=== PATIENT | male | born 1990 | race Caucasian/White ===

== ENCOUNTER 2019-07-26 21:58 | Emergency (ER) | payer OTHER ==
[~2019-07-26] VITALS: Ht 180.3 cm; Wt 83.9 kg
[2019-07-26 22:14] VITALS: Ht 180.3 cm; Wt 83.9 kg
[2019-07-27 02:16] VITALS: BP 131/77
== END 2019-07-27 02:16 | disposition home or self-care (01) ==
LOC: ED 21:58
DX: R51 Headache (principal); R09.81 Nasal congestion; R05 Cough
CPT/HCPCS: J1100; J1885